=== PATIENT | male | born 1970 | race Caucasian/White ===

== ENCOUNTER 2020-02-29 07:43 | Day surgery (SDC) | payer OTHER, SELFPAY ==
[2020-02-24 15:31] VITALS: BMI 25.0
--- NOTE | 2020-02-28 09:49 | HO.ANESPROP2 ---
Documented by User: Jeri Shannon 02/28/20 09:50 HPI - Anesthesia Eval Consult details Narrative: 49yo M for colonoscopy [facility] Past Medical History Medical History No significant past medical history Surgical History Surgical History H/O adenoidectomy No history of previous surgery Social History Social History Smoking Status: Unknown if ever smoked Advance Directives: No Advance Directives Information Provided: No Meds Allergies Allergy/AdvReac Type Severity Reaction Status Date / Time No Known Allergies Allergy Verified 02/24/20 15:30 Home Medications Medication Instructions Recorded Confirmed Type No Known Home Meds 02/24/20 02/24/20 History Exam Exam Date and Time: February 28, [id number] Height,Weight and Vital Signs: Height 6 ft Weight 83.915 kg Assessment and Plan Assessment Anesthesia Assessment: Chart Reviewed Documented by User: Mayi Garcia 02/29/20 09:03 [facility] Past Medical History Medical History No significant past medical history Surgical History Surgical History H/O adenoidectomy No history of previous surgery Social History Social History Smoking Status: Unknown if ever smoked Advance Directives: No Advance Directives Information Provided: No Meds Allergies Allergy/AdvReac Type Severity Reaction Status Date / Time No Known Allergies Allergy Verified 02/24/20 15:30 Home Medications Medication Instructions Recorded Confirmed Type No Known Home Meds 02/24/20 02/24/20 History Exam Airway Mallampati Class: III TM Dist: >3cm Neck ROM: Full Heart: RRR Lungs: CTA Assessment and Plan Assessment Anesthesia Assessment: Anesthesia Plan Discussed and Chart Reviewed Final Anesthetic Review NPO: Yes ASA Class: I Final Preanesthetic Review: Meds/Allgs Chart Reviewed, Consent Obtained/Reviewed and Anes Risks/Benef Reviewed Patient Risk: Low Procedure Risk: Low Anesthetic Plan Anesthetic Plan: MAC: Disposition: Standard PACU
[2020-02-29 08:21] VITALS: BP 123/84; PULSE 61; RESP 16; TEMP 36.3; O2SAT 99
[2020-02-29] MEDS: Lactated Ringers 1,000 ML 100 ML IVCONT (08:29)
--- NOTE | 2020-02-29 08:48 | MHC.SHP ---
Pre-Procedural Eval Section A The patient is an INPATIENT: No Changes since office visit: No Cold of Flu in the past 2 weeks, No New Medical Problems, No Changes in Medication and No Patient answered all questions The History & Physical has been completed within 30 days and I have reviewed it.: Yes Section B Chief Complaint: screening Allergies: Allergies Allergy/AdvReac Type Severity Reaction Status Date / Time No Known Allergies Allergy Verified 02/24/20 15:30 Plan Patient has been examined and remains a candidate for the planned procedure
--- NOTE | 2020-02-29 09:11 | PM.OP ---
Brief Operative Note Date of procedure: 02/29/20 Pre-op diagnosis: screening Post-op diagnosis: same Procedure: colonoscopy Surgeon: Natan Ross Anesthesia: MAC Estimated blood loss (mL): 0 Pathology: none sent Condition: stable Disposition: PACU
[2020-02-29 09:13] VITALS: BP 102/60; PULSE 64; RESP 16; TEMP 36.3; O2SAT 97
[2020-02-29 09:28] VITALS: BP 107/66; PULSE 64; RESP 16; TEMP 36.3; O2SAT 98
--- NOTE | 2020-02-29 09:59 | HO.POSTANES ---
Post Anesthesia Evaluation Post Anesthesia Evaluation Vital Signs: Vital Signs Temp Pulse Resp BP Pulse Ox 02/29/20 09:28 97.4 F 64 16 107/66 98 02/29/20 09:13 97.4 F 64 16 102/60 97 02/29/20 08:21 97.3 F 61 16 123/84 99 Anesthesia: Monitored Mental Status: Awake Pain Control: Satisfactory Nausea/Vomiting: None Hydration: Adequate Anesthesia-Related Issues: No Anes. Related Issues
--- NOTE | 2020-02-29 13:07 | OP_ITS ---
SURGEON: Natan Ross MD INDICATIONS: Colon cancer screening. PREOPERATIVE DIAGNOSIS: POSTOPERATIVE DIAGNOSIS: PROCEDURE PERFORMED: Colonoscopy to the terminal ileum. ESTIMATED BLOOD LOSS: COMPLICATIONS: ANESTHESIA: ASSISTANTS: SPECIMENS: MEDICATIONS: Monitored anesthesia care. PROCEDURE DESCRIPTION: History and physical was performed. The risks and benefits of the procedure were explained to the patient. Informed consent was obtained. The patient was placed in the left lateral decubitus position. A digital rectal exam was performed and was found to be normal. The Olympus pediatric video colonoscope was introduced into the rectum and advanced to the cecum without difficulty. The cecum was identified by transillumination, palpation, and identification of ileocecal valve. Examination was performed and the scope was removed. He tolerated the procedure well and was taken to recovery area in stable condition. FINDINGS: The terminal ileum was normal. The visualized colonic mucosa was normal. The quality of the prep was good. No polyps were identified. Retroflexed examination showed some small internal hemorrhoids. IMPRESSION: Normal colonoscopy. RECOMMENDATIONS: 1. Follow up as needed. 2. Repeat colonoscopy is recommended in 10 years for average risk individuals. MD OREN Mcbride/SALOMON / [id number]
== END 2020-02-29 10:18 | disposition home or self-care (01) ==
PROVIDERS: Internal Medicine Gastroenterology; PCP Internal Medicine; Visit Provider Anesthesiology
PROC: 0DJD8ZZ Inspection of Lower Intestinal Tract, Via Natural or Artificial Opening Endoscopic (ICD-10-PCS; CPT 45378; principal; 2020-02-29 08:50)
DX: Z12.11 Encounter for screening for malignant neoplasm of colon (principal); K64.8 Other hemorrhoids
CPT/HCPCS: 45378; J2250

== ENCOUNTER 2022-01-29 07:00 | Outpatient (REF) | payer OTHER, SELFPAY ==
[2022-01-29 07:07] LABS: MANUAL DIFF FLAG NO
[2022-01-29 07:14] LABS: Basophils Percent Auto 0.6 % (0-2); Eosinophils Absolute Auto 0.3 X10*3/uL (0.0-0.4); Hematocrit 41.7 % (42.0-52.0); Hemoglobin 14.1 g/dl (14.0-18.0); Imm Gran Abs Auto 0.01 X10*3/uL (0.00-0.03); Imm Gran Pct Auto 0.2 % (0.0-0.4); Lymphocytes Absolute Auto 1.4 X10*3/uL (1.2-4.9); Lymphocytes Percent Auto 29.2 % (20-40); Mean Corpuscular HGB Conc 33.8 g/dl (31.0-36.0); Mean Corpuscular Hemoglobin 31.3 pg (27.0-33.0); Mean Corpuscular Volume 92.7 fL (80.0-98.0); Mean Platelet Volume 10.9 fL (9.4-12.4); Monocytes Absolute Auto 0.4 X10*3/uL (0.1-1.2); Monocytes Percent Auto 8.4 % (2-11); Neutrophils Absolute Auto 2.6 x10*3/uL (2.0-8.3); Neutrophils Percent Auto 55.6 % (45-73); Platelet Count 196 X10*3/uL (160-400); Red Cell Distribution Width 12.6 % (11.0-16.0); White Blood Count 4.6 X10*3/uL (4.8-10.8)
[2022-01-29 07:49] LABS: Alanine Aminotransferase 17 U/L (0-40); Albumin Level 3.9 g/dL (3.5-5.0); Alkaline Phosphatase 59 U/L (39-117); Anion Gap 12 (12-20); Aspartate Amino Transferase 16 U/L (5-37); Bilirubin Total 0.3 mg/dL (0.0-1.0); Blood Urea Nitrogen 18 mg/dL (9-16); Calcium 8.9 mg/dL (8.4-10.2); Carbon Dioxide 25 mmol/L (22-29); Chloride 107 mmol/L (96-108); Cholesterol 186 mg/dL; Estimated Glomerular Filt Rate > 60; Glucose Random 105 mg/dL (60-115); HDL Cholesterol 60 mg/dL; LDL Cholesterol Calculated 117 mg/dl; Potassium 4.4 mmol/L (3.3-5.1); Sodium 140 mmol/L (135-145); Total Protein 6.3 g/dL (6.5-8.0); Triglycerides 48 mg/dL
[2022-01-29 08:11] LABS: Thyroid Stimulating Hormone 1.22 uIU/mL (0.32-4.0)
== END 2022-01-29 07:01 | disposition home or self-care (01) ==
LOC: HO.LAB 07:00
PROVIDERS: PCP Internal Medicine; Visit Provider Internal Medicine
DX: Z00.00 Encounter for general adult medical examination without abnormal findings (principal); Z13.31 Encounter for screening for depression; R21 Rash and other nonspecific skin eruption; I10 Essential (primary) hypertension
CPT/HCPCS: 36415; 80053; 80061; 84443; 85025